=== PATIENT | male | born 1945 | race Caucasian/White ===

== ENCOUNTER → 2017-07-22 | Outpatient (CLI) | payer MEDICARE, BC | LOC: COL.RAD 10:12 | DX: K40.90 Unilateral inguinal hernia, without obstruction or gangrene, not specified as recurrent (principal) ==

== ENCOUNTER 2017-08-22 05:32 | Day surgery (SDC) | payer MEDICARE, BC ==
[2017-08-22] VITALS (8 sets, daily range): BP systolic 94–120; BP diastolic 41–77; PULSE 49–65; TEMP 96.8–98.1
[~2017-08-22] VITALS: Ht 188 cm; Wt 87.5 kg
[2017-08-22] MEDS ORDERED: PROTONIX20 MG PO (06:10)
== END 2017-08-22 13:30 | disposition home or self-care (01) ==
LOC: SDCO 05:32
DX: K40.90 Unilateral inguinal hernia, without obstruction or gangrene, not specified as recurrent (principal)
CPT/HCPCS: C1781; J0690; J2405; J2704; J2710; J3010; J7120